=== PATIENT | female | born 1965 | race Caucasian/White ===

== ENCOUNTER → 2021-01-04 | Outpatient (CLI) | payer BC ==
[2021-01-04 16:53] LABS: EOS # 0.1 (0.04-0.40); HEMATOCRIT 42.8 % (37.0-47.0); HEMOGLOBIN 14.7 g/dL (12.5-16.0); LYMPH# 1.8 (1.50-4.00); MEAN CELL VOLUME 87 fl (78-100); MEAN CORPUSCULAR HEMOGLOBIN 30 pg (27-31); MEAN CORPUSCULAR HGB CONC 34 g/dL (33-37); MEAN PLATELET VOLUME 9.5 fl (7.4-10.4); MONO # 0.5 (0.20-0.80); NEU # 3.1 (1.40-6.50); PLATELET COUNT 278 K/mm3 (130-400); RED BLOOD COUNT 4.93 M/mm3 (4.10-5.30); RED CELL DISTRIBUTION WIDTH 12.8 % (11.5-14.5); WHITE BLOOD COUNT 5.5 K/mm3 (4.8-10.8)
[2021-01-04 17:02] LABS: ALBUMIN 4.2 g/dL (3.5-5.0)
[2021-01-04 17:03] LABS: POTASSIUM 3.8 mmol/L (3.5-5.1)
[2021-01-04 17:04] LABS: CALCIUM 9.3 mg/dL (8.3-10.5)
[2021-01-04 17:05] LABS: TOTAL PROTEIN 7.1 g/dL (6.4-8.3)
[2021-01-04 17:07] LABS: TOTAL BILIRUBIN 0.6 mg/dL (0.2-1.2)
[2021-01-05 18:01] LABS: ESTRADIOL <10 pg/mL (()); FOLLICLE STIMULATING HORMONE 66.5 mIU/mL (()); PROGESTERONE <0.1 ng/mL (()); T3 FREE 2.8 pg/mL (1.7-3.7); TESTOSTERONE 16 ng/dL (13-36)
[2021-01-06 16:38] LABS: T3 TOTAL 85 ng/dL (58-159)
== END ==
LOC: LAB 16:42
DX: E34.9 Endocrine disorder, unspecified (principal); E07.9 Disorder of thyroid, unspecified; R79.9 Abnormal finding of blood chemistry, unspecified

== ENCOUNTER 2021-08-23 10:03 | Outpatient (RCR) | payer BC | END 2021-09-03 23:59 | disposition home or self-care (01) | LOC: PT 10:03 | DX: M17.0 Bilateral primary osteoarthritis of knee (principal); M22.8X9 Other disorders of patella, unspecified knee ==

== ENCOUNTER 2021-09-07 15:25 | Outpatient (RCR) | payer BC | END 2021-09-11 17:00 | disposition home or self-care (01) | LOC: PT 15:25 | DX: M17.0 Bilateral primary osteoarthritis of knee (principal); M22.8X9 Other disorders of patella, unspecified knee ==

== ENCOUNTER 2022-01-21 10:04 | Outpatient (RCR) | payer BC | END 2022-02-01 | disposition home or self-care (01) | LOC: PT | DX: M17.11 Unilateral primary osteoarthritis, right knee (principal) ==

== ENCOUNTER 2022-02-04 11:00 | Outpatient (RCR) | payer BC | END 2022-02-22 17:00 | disposition still patient (30) | LOC: PT 11:00 | DX: M17.11 Unilateral primary osteoarthritis, right knee (principal) ==

== ENCOUNTER 2022-02-25 10:00 | Outpatient (RCR) | payer BC | END 2022-03-03 | disposition home or self-care (01) | LOC: PT | DX: M17.12 Unilateral primary osteoarthritis, left knee (principal) ==

== ENCOUNTER 2022-03-04 08:26 | Outpatient (RCR) | payer BC | END 2022-04-03 | disposition home or self-care (01) | LOC: PT | DX: M17.12 Unilateral primary osteoarthritis, left knee (principal) ==

== ENCOUNTER 2022-04-04 07:55 | Outpatient (RCR) | payer BC | END 2022-04-26 15:33 | disposition home or self-care (01) | LOC: PT 07:55 | DX: M17.12 Unilateral primary osteoarthritis, left knee (principal) ==